=== PATIENT | female | born 1965 | race Caucasian/White ===

== ENCOUNTER → 2020-06-30 | Outpatient (CLI) | payer OTHER | END | disposition home or self-care (01) | LOC: MI 10:21 | PROVIDERS: ATTEND Internal Medicine | PROC: BR39YZZ Magnetic Resonance Imaging (MRI) of Lumbar Spine using Other Contrast (ICD-10-PCS; principal; 2020-06-30) | DX: R41.82 Altered mental status, unspecified (principal); M51.36 Other intervertebral disc degeneration, lumbar region; M86.9 Osteomyelitis, unspecified | CPT/HCPCS: A9577 ==